=== PATIENT | male | born 1965 | race Caucasian/White ===

== ENCOUNTER 2018-03-15 08:00 | Outpatient (CLI) | payer MEDICARE, MEDICAID ==
[~2018-03-15] VITALS: Ht 175.3 cm; Wt 64.0 kg
[2018-03-15 07:12] LABS: AMPHETAMINE SCREEN, URINE Positive (Negative); BARBITURATE SCREEN, URINE Negative (Negative); BENZODIAZEPINE SCREEN, URINE Negative (Negative); CANNABINOID SCREEN, URINE Positive (Negative); COCAINE SCREEN, URINE Negative (Negative); METHADONE SCREEN, URINE Negative (Negative); OPIATE SCREEN, URINE Negative (Negative)
[~2018-03-15 08:00] MED LIST: ACETAMINOPHEN 500 MG TABLET PO ONE; FENTANYL PF 100 MCG/2ML IV PRN; FENTANYL PF 250 MCG/5ML ONE; GABAPENTIN 300 MG CAPSULE PO ONE; HYDR-3307 PO; HYDROmorphone 2 MG/ML, 1ML IVPush PRN; LABETALOL 5MG/ML, 20ML IV PRN; LACTATED RINGERS 1,000 ML IV SCH; LIDOCAINE-MPF 1%, 2ML INFIL ONE; MEPERIDINE/PF 25MG/0.5ML IVPush PRN; MIDAZOLAM 1 MG/ML, 2ML ONE; MORPHINE SULFATE 4 MG/ML, 1ML IVPush PRN; ONDANSETRON 2MG/ML, 2ML IV PRN; ONDANSETRON ODT 8 MG PO PRN; OXYcodone 5 MG/5 ML ORAL.SOL UDC PO PRN; PROMETHAZINE 12.5 MG SUPP PR PRN; PROMETHAZINE 25 MG SUPP PR PRN; PROMETHAZINE 25 MG/ML, 1ML IM PRN; PROMETHAZINE 25 MG/ML, 1ML IV PRN; PROPOFOL 50 ML ONE; hydrALAzine 20 MG/ML, 1ML IV PRN
== END 2018-03-15 23:59 | disposition home or self-care (01) ==
LOC: UNDODISIN 08:00 → CLISVCS 08:00
PROVIDERS: ATTEND Orthopaedic Surgery Orthopaedic Surgery of the Spine
DX: Z01.812 Encounter for preprocedural laboratory examination (principal); M43.16 Spondylolisthesis, lumbar region; M48.061 Spinal stenosis, lumbar region without neurogenic claudication; M51.26 Other intervertebral disc displacement, lumbar region
CPT/HCPCS: 80307; J2250; J2704; J3010; J3370; J7120